=== PATIENT | male | born 1945 | race Caucasian/White ===

== ENCOUNTER 2024-01-22 14:43 | Emergency (ER) | payer MEDICARE, OTHER, SELFPAY ==
[2024-01-22 15:04] VITALS: BP 146/92
[2024-01-22 15:26] LABS: Urine Albumin Trace (Neg - Trace); Urine Bilirubin Negative (Negative); Urine Character Very Cloudy (Clear); Urine Color Yellow; Urine Glucose Negative (Negative); Urine Ketone Negative (Negative); Urine Leukocyte 2+ (Negative); Urine Nitrite Positive (Negative); Urine Occult Blood 3+ (Negative); Urine Urobilinogen Negative (Neg - 1+)
[2024-01-22 15:48] LABS: Urine Bacteria Many (Negative)
[2024-01-22 17:00] VITALS: BP 138/74
[2024-01-22 17:20] LABS: % Basophils 0.3 % (0-2); % Eosinophils 0.9 % (0-6); % Immature Granulocytes 0.3 % (0-0.5); % Lymphocytes 11.9 % (20.5-51.1); % Monocytes 7.8 % (1.7-9.3); % Neutrophils 78.8 % (42.2-75.2); Absolute Eosinophils 0.1 10^3/uL (0-0.7); Absolute Lymphocytes 1.1 10^3/uL (1.2-3.4); Absolute Monocytes 0.7 10^3/uL (0.1-0.6); Absolute Neutrophils 7.3 10^3/uL (1.4-6.5); Hematocrit 39.4 % (39.0-52.0); Hemoglobin 13.8 g/dL (13.0-18.0); Mean Corpuscular Hgb 32.4 pg (27.0-31.0); Mean Corpuscular Volume 92.5 fL (80.0-94.0); Mean Platelet Volume 10.4 fL (7.4-10.4); Nucleated Red Blood Cells % 0 % (-); Platelet Count 179 10^3/uL (130-400); Red Blood Cell Count 4.26 10^6/uL (4.70-6.10); White Blood Cell Count 9.2 10^3/uL (4.8-10.8)
[2024-01-22 17:35] LABS: ALT (SGPT) 26 U/L (0-50); AST (SGOT) 28 U/L (17-59); Albumin 4.3 g/dl (3.5-5.0); Alkaline Phosphatase 87 U/L (38-126); Blood Urea Nitrogen 22 mg/dl (9-20); Calcium 9.2 mg/dl (8.4-10.2); Carbon Dioxide 30 mmol/L (22-30); Chloride 102 mmol/L (98-107); Glucose 94 mg/dl (70-99); Potassium 4.2 mmol/L (3.5-5.1); Sodium 140 mmol/L (135-145); Total Bilirubin 0.6 mg/dl (0.2-1.3); eGFR 56.58
--- NOTE | 2024-01-22 17:49 | ED.GENMED ---
History of Present Illness
General
Chief Complaint: Male Genito-Urinary Symptoms
Source: patient
Exam Limitations: none
Time Seen by Provider: 01/22/24 16:29
Nursing documentation reviewed up to this point in time: agreed with
History of Present Illness
History of Present Illness:
Patient to ED with complaint of urinary frequency, urgency, feeling like he is not emptying bladder. States he had cystoscopy on 01-11 and a carreno was placed at that time Carreno removed on Thursday. Symptoms started shortly after carreno removed. Has
been taking duricef 500mg bid since Thursday. Denies fever/chills, abdominal pain. Brought to ED by spouse for evall
Past History
Past History
ED Past Medical History: Arrthythmia, HTN, Hypercholesterolemia and Other (Aortic stenosis, BPH, prostate cancer, kidney stones)
ED Past Surgical History: Cardiac
Social History
Tobacco: Non-smoker
Alcohol: Occasional
Drug: None
Personal:
Living: with family
Employment: Employed (Banker)
Review of Systems
Review of Systems
Allergies reviewed?: Yes
All Other Systems: ROS reviewed and negative except as documented in HPI and ROS
Constitutional: Reports no symptoms
EENT: Reports no symptoms
Respiratory: Reports no symptoms
Cardiac: Reports no symptoms
ABD/GI: Reports no symptoms
: Reports dysuria, frequency, difficulty voiding and urgency
Musculoskeletal: Reports no symptoms
Skin: Reports no symptoms
Neurological: Reports no symptoms
Psychiatric: Reports no symptoms
Phy Exam
General Physical Exam
General Presentation: well appearing and no apparent distress
General age: appears stated age
General Skin: warm and dry
General Habitus: normal
General Mental: alert
Gastrointestinal Exam
Gastrointestinal Exam: normal bowel sounds, non tender, soft and no organomegaly
Genitourinary Exam Male
Exam Male: other (Post void bladder scan - 320cc. Carreno catheter placed by RN bedside. Draining blood tinged urine without difficulty.)
Musculoskeletal Exam
Musculoskeletal Exam: full ROM and neuro vasc intact
Skin Exam
Skin Exam: normal color, warm/dry and no rash
Psychiatric Exam
Psychiatric Exam: normal mood/affect
Course
Orders/Labs/Results
Orders:
Orders
01/22/24 15:11
Urinalysis Reflex To Culture Urgent
Date Specimen was Collected: 01/22/24
Time Specimen was Collected: 15:06
Urine Microscopic Reflex Cult Urgent
Urine Culture Urgent
GUILLERMO Source: U
Specimen Description:
Date Specimen was Collected: 01/22/24
Time Specimen was Collected: 15:06
01/22/24 16:42
Bladder Scan- Treatment ONCE
01/22/24 16:53
Complete Blood Count/With Diff Urgent
Comprehensive Metabolic Panel Urgent
01/22/24 17:12
Carreno Placement- Treatment ONCE
Reason for insertion: Acute Retention
01/22/24 17:41
LevoFLOXacin [Levaquin] 500 mg PO NOW STA
Phenazopyridine HCl [Pyridium] 200 mg PO NOW STA
Abnormal Lab Results
01/22/24 01/22/24
15:11 16:53
RBC 4.26 L 10^6/uL
(4.70-6.10)
MCH 32.4 H pg
(27.0-31.0)
Absolute Neuts (auto) 7.3 H 10^3/uL
(1.4-6.5)
Absolute Lymphs (auto) 1.1 L 10^3/uL
(1.2-3.4)
Absolute Monos (auto) 0.7 H 10^3/uL
(0.1-0.6)
Neutrophils % 78.8 H %
(42.2-75.2)
Lymphocytes % 11.9 L %
(20.5-51.1)
BUN 22 H mg/dl
(9-20)
Ur Occult Blood Reflex 3+ A
(Negative)
Urine Nitrite (Reflex) Positive A
(Negative)
Leukocyte Esterase Rfl 2+ A
(Negative)
Urine RBC 7-10 A /HPF
(0-2)
Urine WBC (Reflex) 11-15 A /HPF
(0-5)
Urine Bacteria (Reflex) Many A
(Negative)
01/22/24 16:53
01/22/24 16:53
Vital Signs
Initial and Last Documented VS:
Initial Vital Signs
Temp Pulse Resp BP Pulse Ox
97.8 F 74 18 146/92 97
01/22/24 15:04 01/22/24 15:04 01/22/24 15:04 01/22/24 15:04 01/22/24 15:04
Last Documented Vital Signs
Temp Pulse Resp BP Pulse Ox
97.8 F 80 16 129/85 99
01/22/24 15:04 01/22/24 18:00 01/22/24 18:00 01/22/24 18:00 01/22/24 18:00
*Critical Care Note
Total Time (30-74mins, 75-104mins- exclusive of procedures): Not Applicable
Update Note
Update Note:
+UTI. Will stop duricef and placed on Levaquin 500mg daily. FOllow up with Urologist on Thursday.
ED Attending Note
-
Portions of this chart may have been created with voice recognition software.� Occasional wrong word or��sound alike� substitutions may have occurred due to the inherent limitations of voice recognition software.
Discharge Plan
Departure
Patient Disposition: Home (Routine Discharge)
Date of Disposition: 01/22/24
Time of Disposition: 17:42
Patient with high blood pressure during this ER visit?: No
Condition: Good
Covid-19: Not Applicable
Discharge Problem:
Acute urinary retention, Acute UTI
Instructions: Urinary tract infections in adults, How to Care for Your Carreno Catheter, Male, Urinary Retention (DC)
Prescriptions:
New
levofloxacin 500 mg tablet
500 mg PO DAILY 5 Days Qty: 5 0RF
No Action
metoprolol tartrate 25 MG tablet
25 mg PO BID
Eliquis 5 MG tablet
5 mg PO BID
sertraline 50 MG tablet
50 mg PO DAILY
rosuvastatin 20 MG tablet
20 mg PO DAILY
pantoprazole [Protonix] 40 mg tablet,delayed release (DR/EC)
40 mg PO DAILY Qty: 14 0RF
Referrals:
UNKNOWN - PT DOES,NOT KNOW [Family Provider] -
Activity Restrictions/Additional Instructions:
FOllow up with your urologist on Thursday. Return to the emergency department immediately for fever/chills, abdominal or back pain, vomiting.
Interventions
Interventions:
*Risk Screen - Suicide Last Done: 01/22/24 15:05
*General Assessment Last Done: 01/22/24 15:05
*Neglect/Abuse Screening Last Done: 01/22/24 15:05
*ED COVID-19 Vaccine History Last Done: 01/22/24 15:05
*Nursing Disposition Last Done: 01/22/24 18:17
ED-Male Genitourinary Assessment Last Done: 01/22/24 17:00
Discharge Date and Time
Discharge Date/Time: 01/22/24 18:18
Print Language: FINNISH
[2024-01-22 18:00] VITALS: BP 129/85
[2024-01-22] MEDS: LEVAQUIN 500 MG PO (18:09)
[2024-01-22] MEDS: Pyridium 200 MG PO (18:09)
== END 2024-01-22 18:18 | disposition home or self-care (01) ==
LOC: EMR 14:43
PROVIDERS: Nurse Practitioner; EMERGENCY PHYSICIAN Emergency Medicine
DX: N39.0 Urinary tract infection, site not specified (principal); N40.1 Benign prostatic hyperplasia with lower urinary tract symptoms; R33.9 Retention of urine, unspecified; I10 Essential (primary) hypertension; E78.00 Pure hypercholesterolemia, unspecified; I35.0 Nonrheumatic aortic (valve) stenosis; Z79.01 Long term (current) use of anticoagulants; Z98.890 Other specified postprocedural states; Z85.46 Personal history of malignant neoplasm of prostate; Z87.442 Personal history of urinary calculi
CPT/HCPCS: 99284; 51798; 51702; 80053; 81003; 81015; 85025; 87077; 87086; 87186

== ENCOUNTER 2024-02-19 12:49 | Emergency (ER) | payer MEDICARE, OTHER, SELFPAY ==
[2024-02-19 12:56] VITALS: BP 171/98
[2024-02-19 14:16] LABS: % Basophils 0.4 % (0-2); % Eosinophils 0.9 % (0-6); % Immature Granulocytes 0.4 % (0-0.5); % Lymphocytes 11.3 % (20.5-51.1); % Monocytes 9.2 % (1.7-9.3); % Neutrophils 77.8 % (42.2-75.2); Absolute Eosinophils 0.1 10^3/uL (0-0.7); Absolute Lymphocytes 0.9 10^3/uL (1.2-3.4); Absolute Monocytes 0.7 10^3/uL (0.1-0.6); Absolute Neutrophils 6.2 10^3/uL (1.4-6.5); Hematocrit 37.8 % (39.0-52.0); Hemoglobin 13.1 g/dL (13.0-18.0); Mean Corp Hgb Conc. 34.7 g/dL (33.0-37.0); Mean Corpuscular Volume 92.4 fL (80.0-94.0); Nucleated Red Blood Cells % 0 % (-); Platelet Count 180 10^3/uL (130-400); Red Blood Cell Count 4.09 10^6/uL (4.70-6.10); Red Cell Dist. Width 12.8 % (11.5-14.5); White Blood Cell Count 7.9 10^3/uL (4.8-10.8)
[2024-02-19 14:20] LABS: Urine Albumin 2+ (Neg - Trace); Urine Bilirubin 1+ (Negative); Urine Character Very Cloudy (Clear); Urine Color Brown; Urine Glucose Negative (Negative); Urine Ketone Trace (Negative); Urine Leukocyte 2+ (Negative); Urine Nitrite Positive (Negative); Urine Occult Blood 4+ (Negative); Urine Specific Gravity 1.025 (<1.030); Urine Urobilinogen 1+ (Neg - 1+)
[2024-02-19 14:38] LABS: Urine Red Blood Cell >100 /HPF (0-2); Urine Squamous Cell 0-2 /LPF (Few)
[2024-02-19 14:39] LABS: Urine Bacteria Many (Negative)
[2024-02-19 14:39] LABS: ALT (SGPT) 20 U/L (0-50); AST (SGOT) 27 U/L (17-59); Albumin 4.2 g/dl (3.5-5.0); Alkaline Phosphatase 86 U/L (38-126); Blood Urea Nitrogen 20 mg/dl (9-20); Calcium 9.6 mg/dl (8.4-10.2); Carbon Dioxide 26 mmol/L (22-30); Chloride 105 mmol/L (98-107); Glucose 99 mg/dl (70-99); Potassium 4.2 mmol/L (3.5-5.1); Sodium 139 mmol/L (135-145); Total Bilirubin 0.4 mg/dl (0.2-1.3); Total Protein 6.8 g/dl (6.3-8.2); eGFR > 60.00
[2024-02-19 14:41] LABS: Urine Urothelial Cell 0-2 /LPF (FEW); Urine White Cell 30-40 /HPF (0-5)
--- NOTE | 2024-02-19 15:12 | ED.GENMED ---
History of Present Illness
General
Chief Complaint: Catheter/Tube Problem
Time Seen by Provider: 02/19/24 14:10
History of Present Illness
History of Present Illness:
78-year-old male with history of BPH status post TURP with resulting urinary retention presents to the emergency department for evaluation of hematuria. Noted bloody urine in his leg bag today and then for several hours no urine was emptying into
the bag. Since arriving to the emergency department his bag is continued to drain bloody urine. He is on Eliquis due to atrial fibrillation and last dose was this morning. He denies any abdominal pain or fevers at this time. The Souza catheter
was placed 3 days ago at his urologist office, sees Dr. Veloz at [facility] urology. He states that there was some mechanical difficulty in getting the catheter placed
Past History
Past History
ED Past Medical History: Arrthythmia, HTN, Hypercholesterolemia and Other (Aortic stenosis, BPH, prostate cancer, kidney stones)
ED Past Surgical History: Cardiac
Social History
Tobacco: Non-smoker
Alcohol: Occasional
Drug: None
Personal:
Living: with family
Employment: Employed (Banker)
Review of Systems
Review of Systems
Allergies reviewed?: Yes
All Other Systems: ROS reviewed and negative except as documented in HPI and ROS
Phy Exam
Physical Exam
Physical Exam:
GEN: Well appearing, NAD, WDWN
HEENT: Oral mucosa moist, no scleral icterus
Cardiac: Regular rate
Lung: No respiratory distress, no tachypnea
: [address] [place] [address] catheter in place, adequate drainage of bloody urine, no obvious clots
MSK: No gross deformity or injuries
Skin: Good color, no pallor or jaundice, no rashes
Neuro: AO x3, moves all extremities freely
Psych: Calm, cooperative
Course
Orders/Labs/Results
Orders:
Orders
02/19/24 13:51
Urinalysis Reflex To Culture Urgent
Date Specimen was Collected: 02/19/24
Time Specimen was Collected: 13:46
Urine Microscopic Reflex Cult Urgent
Urine Culture Urgent
GUILLERMO Source: U
Specimen Description:
Date Specimen was Collected: 02/19/24
Time Specimen was Collected: 13:46
02/19/24 13:59
Complete Blood Count/With Diff Urgent
Comprehensive Metabolic Panel Urgent
Abnormal Lab Results
02/19/24 02/19/24
13:51 13:59
RBC 4.09 L 10^6/uL
(4.70-6.10)
Hct 37.8 L %
(39.0-52.0)
MCH 32.0 H pg
(27.0-31.0)
Absolute Lymphs (auto) 0.9 L 10^3/uL
(1.2-3.4)
Absolute Monos (auto) 0.7 H 10^3/uL
(0.1-0.6)
Neutrophils % 77.8 H %
(42.2-75.2)
Lymphocytes % 11.3 L %
(20.5-51.1)
Urine Ketones Trace A
(Negative)
Ur Occult Blood Reflex 4+ A
(Negative)
Urine Nitrite (Reflex) Positive A
(Negative)
Urine Bilirubin 1+ A
(Negative)
Leukocyte Esterase Rfl 2+ A
(Negative)
Urine RBC >100 A /HPF
(0-2)
Urine WBC (Reflex) 30-40 A /HPF
(0-5)
Urine Bacteria (Reflex) Many A
(Negative)
Urine Albumin (Reflex) 2+ A
(Neg - Trace)
02/19/24 13:59
02/19/24 13:59
Vital Signs
Initial and Last Documented VS:
Initial Vital Signs
Temp Pulse Resp BP Pulse Ox
98.3 F 86 16 171/98 98
02/19/24 12:56 02/19/24 12:56 02/19/24 12:56 02/19/24 12:56 02/19/24 12:56
Last Documented Vital Signs
Temp Pulse Resp BP Pulse Ox
98.3 F 86 16 171/98 98
02/19/24 12:56 02/19/24 12:56 02/19/24 12:56 02/19/24 12:56 02/19/24 12:56
MDM/Problems Addressed
MDM/Problems Addressed:
Catheter draining well, it was hand irrigated with 500 cc by patient's RN with good results. No clogging of catheter was seen in the emergency department. He is already on cefuroxime by his urologist over the past week. Will advise him to hold
Eliquis and contact his urologist next week for follow-up. I did contact Dr. Veloz and spoke with him via phone who agrees with this plan
*Critical Care Note
Total Time (30-74mins, 75-104mins- exclusive of procedures): Not Applicable
ED Attending Note
-
Portions of this chart may have been created with voice recognition software.� Occasional wrong word or��sound alike� substitutions may have occurred due to the inherent limitations of voice recognition software.
Discharge Plan
Departure
Patient Disposition: Home (Routine Discharge)
Date of Disposition: 02/19/24
Time of Disposition: 15:34
Patient with high blood pressure during this ER visit?: No
Discharge Problem:
Hematuria
Instructions: Blood in Urine (Hematuria), Adult ED
Prescriptions:
No Action
metoprolol tartrate 25 MG tablet
25 mg PO BID
Eliquis 5 MG tablet
5 mg PO BID
sertraline 50 MG tablet
50 mg PO DAILY
rosuvastatin 20 MG tablet
20 mg PO DAILY
pantoprazole [Protonix] 40 mg tablet,delayed release (DR/EC)
40 mg PO DAILY Qty: 14 0RF
levofloxacin 500 mg tablet
500 mg PO DAILY 5 Days Qty: 5 0RF
Referrals:
Marciano Lane MD [Family Provider] -
Activity Restrictions/Additional Instructions:
Do not take your Eliquis again until Thursday morning
Call your urologist for follow up if bleeding does not resolve
We will call if urine culture requires any new antibiotics
Interventions
Interventions:
*Risk Screen - Suicide Last Done: 02/19/24 12:56
*General Assessment Last Done: 02/19/24 12:56
*Neglect/Abuse Screening Last Done: 02/19/24 12:56
ED- Fall Risk Assessment Last Done: 02/19/24 15:43
*ED COVID-19 Vaccine History Last Done: 02/19/24 15:43
*Nursing Disposition Last Done: 02/19/24 15:43
LP-Cstoix-Gyeiwfkvdi Assessment Last Done: 02/19/24 14:06
ED-Male Genitourinary Assessment Last Done: 02/19/24 14:06
Discharge Date and Time
Discharge Date/Time: 02/19/24 15:44
Print Language: [place]
== END 2024-02-19 15:44 | disposition home or self-care (01) ==
LOC: EMR 12:49
PROVIDERS: EMERGENCY PHYSICIAN Emergency Medicine; FAMILY PHYSICIAN Family Medicine
DX: R31.9 Hematuria, unspecified (principal); N40.1 Benign prostatic hyperplasia with lower urinary tract symptoms; I10 Essential (primary) hypertension; E78.00 Pure hypercholesterolemia, unspecified; I35.0 Nonrheumatic aortic (valve) stenosis; I48.91 Unspecified atrial fibrillation; Z79.01 Long term (current) use of anticoagulants; Z85.46 Personal history of malignant neoplasm of prostate; Z87.442 Personal history of urinary calculi; Z90.79 Acquired absence of other genital organ(s)
CPT/HCPCS: 99283; 80053; 81003; 81015; 85025; 87077; 87086; 87186

== ENCOUNTER 2024-07-28 22:29 | Emergency (ER) | payer MEDICARE, OTHER, SELFPAY ==
[2024-07-28 22:32] VITALS: BP 147/92
[2024-07-29 00:16] VITALS: BP 114/74
--- NOTE | 2024-07-29 00:22 | ED.GENMED ---
History of Present Illness
General
Chief Complaint: Male Genito-Urinary Symptoms
Source: patient and spouse
Time Seen by Provider: 07/28/24 23:01
History of Present Illness
History of Present Illness:
79-year-old male with history of prostatic hypertrophy as well as radiation to the prostate presents after his Souza catheter has not put out urine since earlier this afternoon. Does report lower abdominal discomfort. Is supposed to see urology
tomorrow to try to get the catheter removed. Does state he does occasionally get blood around the catheter. No fevers. No vomiting. Spouse states that he has been in the moderate mount of pain
Past History
Past History
ED Past Medical History: Arrthythmia, HTN, Hypercholesterolemia and Other (Aortic stenosis, BPH, prostate cancer, kidney stones)
ED Past Surgical History: Cardiac
Social History
Tobacco: Non-smoker
Alcohol: Occasional
Drug: None
Personal:
Living: with family
Employment: Employed (Banker)
Phy Exam
Physical Exam
Physical Exam:
CONSTITUTIONAL Patient alert and oriented to person, place and time. Well-appearing. Vital signs reviewed.
HEAD atraumatic, normocephalic.
EYES eyelids normal to inspection, Extraocular muscles intact, Conjunctiva normal, Sclera normal.
NECK normal range of motion, Trachea midline, no jugular venous distention.
RESPIRATORY CHEST No respiratory distress noted, Chest expansion equal
ABDOMEN mild suprapubic tenderness, mild distention, Bowel sounds normal.
Souza catheter 14 [place] noted during exam. Attempted flushing without success. Penis normal
BACK normal inspection, no obvious deformities
UPPER EXTREMITY range of motion normal, Motor strength normal, no cyanosis, no edema.
LOWER EXTREMITY range of motion normal, Motor strength normal, no cyanosis, no edema.
NEURO Speech normal, No focal motor deficits, [place] coma scale 15, Memory normal, Cranial Nerves intact to screening exam.
SKIN skin warm, dry, and normal in color.
Course
Orders/Labs/Results
Orders:
Orders
07/28/24 22:34
Urinalysis Reflex To Culture Urgent
Date Specimen was Collected: 07/28/24
Time Specimen was Collected: 22:34
07/28/24 23:29
Lidocaine 2% [Lidocaine Uro-Jet 2%] 1 syringe .ROUTE .STK-MED ONE
Vital Signs
Initial and Last Documented VS:
Initial Vital Signs
Temp Pulse Resp BP Pulse Ox
98.2 F 85 16 147/92 98
07/28/24 22:32 07/28/24 22:32 07/28/24 22:32 07/28/24 22:32 07/28/24 22:32
Last Documented Vital Signs
Temp Pulse Resp BP Pulse Ox
98.2 F 91 16 114/74 97
07/28/24 22:32 07/29/24 00:16 07/29/24 00:16 07/29/24 00:16 07/29/24 00:16
MDM/Problems Addressed
MDM/Problems Addressed:
Urinary retention, Souza catheter malfunction, chronic BPH
*Pulse Oximetry
Patient hypoxic: no
*Critical Care Note
Total Time (30-74mins, 75-104mins- exclusive of procedures): Not Applicable
Data Reviewed
Source: patient and significant other
Patient Management
Escalation/DeEscalation of care consider admission/obs:
79-year-old male who presents with difficulty with his catheter. I was able to remove the catheter patient was able to drain urine on his own and pee. He now has a residual 100 cc but feels much better and feels like he voided enough. He has
plans to see urology tomorrow. He was supposed to have the catheter removed anyway. He would like to leave the catheter out follow-up with urology which I think is reasonable.
ED Attending Note
-
Portions of this chart may have been created with voice recognition software.� Occasional wrong word or��sound alike� substitutions may have occurred due to the inherent limitations of voice recognition software.
Discharge Plan
Departure
Patient Disposition: Home (Routine Discharge)
Date of Disposition: 07/29/24
Time of Disposition: 00:22
Patient with high blood pressure during this ER visit?: No
Discharge Problem:
Clogged Souza catheter
Instructions: Urinary Retention (DC)
Prescriptions:
No Action
metoprolol tartrate 25 MG tablet
25 mg PO BID
Eliquis 5 MG tablet
5 mg PO BID
sertraline 50 MG tablet
50 mg PO DAILY
rosuvastatin 20 MG tablet
20 mg PO DAILY
pantoprazole [Protonix] 40 mg tablet,delayed release (DR/EC)
40 mg PO DAILY Qty: 14 0RF
levofloxacin 500 mg tablet
500 mg PO DAILY 5 Days Qty: 5 0RF
Referrals:
UNKNOWN - PT DOES,NOT KNOW [Family Provider] -
Activity Restrictions/Additional Instructions:
Please see urology tomorrow as planned. Return immediately for abdominal pain, fevers, difficulty urinating or any other concerns.
Interventions
Interventions:
*Risk Screen - Suicide Last Done: 07/28/24 22:32
*General Assessment Last Done: 07/29/24 00:00
*Neglect/Abuse Screening Last Done: 07/28/24 22:32
ED- Fall Risk Assessment Last Done: 07/29/24 00:00
*ED COVID-19 Vaccine History Last Done: 07/29/24 00:00
ED-Male Genitourinary Assessment Last Done: 07/29/24 00:00
Discharge Date and Time
Print Language: [place]
== END 2024-07-29 00:30 | disposition home or self-care (01) ==
LOC: EMR 22:29
PROVIDERS: EMERGENCY PHYSICIAN Emergency Medicine
DX: T83.091A Other mechanical complication of indwelling urethral catheter, initial encounter (principal); Y92.9 Unspecified place or not applicable; I10 Essential (primary) hypertension; E78.00 Pure hypercholesterolemia, unspecified; I35.0 Nonrheumatic aortic (valve) stenosis; N40.0 Benign prostatic hyperplasia without lower urinary tract symptoms; Z85.46 Personal history of malignant neoplasm of prostate; Z87.442 Personal history of urinary calculi
CPT/HCPCS: 99282

== ENCOUNTER → 2024-09-27 10:08 | Outpatient (REF) | payer MEDICARE, OTHER, SELFPAY | LOC: RCS 10:08 | PROVIDERS: ATTENDING PHYSICIAN Internal Medicine; FAMILY PHYSICIAN Family Medicine | DX: C67.9 Malignant neoplasm of bladder, unspecified (principal) | CPT/HCPCS: 93306; 93356 ==